=== PATIENT | male | born 1955 | race Caucasian/White ===

== ENCOUNTER 2018-06-28 09:40 | Day surgery (SDC) | payer BC ==
[~2018-06-28 09:40] MED LIST: ACETAMINOPHEN 1,000 MG/100 ML BTL IV ONE; CEFAZOLIN 2 Gram 2 GM/50 ML BAG IVPB ONE; CELECOXIB 100 MG CAPSULE PO ONE; FAMOTIDINE 20MG TABLET PO ONE; MECLIZINE 25 MG TABLET PO ONE; METOCLOPRAMIDE 10 MG TABLET PO ONE; VANCOMYCIN HCL 1,000 MG in DEXTROSE 5 % IN WATER 250 ML IVPB ONE
[2018-06-28] MEDS ORDERED: BUPIVACAINE 0.5% W/EPI MPF 30 ML VIAL IVP ONE (09:41)
[2018-06-28] MEDS ORDERED: LIDOCAINE 2% MDV (20MG/ML) 20ML VIAL IV ONE (09:41)
[2018-06-28] MEDS ORDERED: DEXAMETHASONE 4 MG/ML 1ML VIAL IVP ONE (09:41)
[2018-06-28] MEDS ORDERED: PROPOFOL 10 MG/ML VIAL IV ONE (09:41)
[2018-06-28] MEDS ORDERED: MIDAZOLAM HCL 2MG/2ML VIAL IV ONE (09:41)
[2018-06-28] MEDS ORDERED: HYDROCORTISONE 100MG/VIAL IVP ONE (09:41)
[2018-06-28] MEDS ORDERED: TRANEXAMIC ACID 1,000 MG/10 ML ML IV ONE (09:41)
[2018-06-28] MEDS ORDERED: METOCLOPRAMIDE 10 MG TABLET PO ONE (09:41)
[2018-06-28] MEDS ORDERED: ROPIVACAINE HCL (NAROPIN) /PF 5MG/ML 20ML VIAL IV ONE (09:41)
[2018-06-28 10:35] LABS: ABO GROUP AB; ANTIBODY SCREEN NEGATIVE (NEGATIVE); RH TYPE POSITIVE
[2018-06-28] MEDS ORDERED: AL HYDROX/MAG HYDROX 30ML UD PO PRN (14:28)
[2018-06-28] MEDS ORDERED: ONDANSETRON HCL IV 4 MG/2 ML VIAL IVP PRN (14:28)
[2018-06-28] MEDS ORDERED: MAGNESIUM HYDROXIDE 30 ML UDC PO PRN (14:28)
[2018-06-28] MEDS ORDERED: ACETAMINOPHEN 325 MG TAB PO PRN (14:28)
[2018-06-28] MEDS ORDERED: TRAMADOL HCL 50 MG TABLET PO PRN (14:28)
[2018-06-28] MEDS ORDERED: ZOLPIDEM TARTRATE 5 MG TABLET PO PRN (14:28)
[2018-06-28] MEDS ORDERED: HYDROCODONE/APAP 10/325 TABLET PO PRN (14:28)
[2018-06-28] MEDS ORDERED: DIPHENHYDRAMINE HCL 25 MG CAPSULE PO PRN ×2 (14:28→15:00)
[2018-06-28] MEDS ORDERED: KETOROLAC 30 MG/ML VIAL IVP PRN ×2 (14:28)
[2018-06-28] MEDS ORDERED: NALOXONE 0.4 MG/1 ML VIAL IVP PRN (14:28)
[2018-06-28] MEDS ORDERED: ACETAMINOPHEN W/ CODEINE 300MG/60MG TABLET PO PRN ×2 (14:28)
[2018-06-28] MEDS ORDERED: BISACODYL 10 MG SUPP RC PRN (14:28)
[2018-06-28] MEDS ORDERED: HYDROMORPHONE HCL 2 MG/ML VIAL IM PRN (14:28)
[2018-06-28] MEDS ORDERED: POTASSIUM CHLORIDE/D5-0.9%NACL 20 MEQ/1,000 ML BAG IV SCH (15:00)
[2018-06-28] MEDS ORDERED: MELATONIN 5 MG TABLET PO PRN (15:00)
--- NOTE | 2018-06-28 17:18 | Rehab Evaluation ---
Patient Information - Patient Information Diagnosis: R knee DJD Ordered Treatment: PT Evaluate and Treat Status: Initial Evaluation Surgery: Yes (R TKA) Date of Surgery: 06/28/18 Past Medical/Surgical Hx: PAST MEDICAL/SURGICAL HISTORY Past Surgical History KIDNEY TRANSPLANT 2009 RIGHT KNEE SX'S X'S 2 PYLORIC STENOSIS SKIN CA REMOVALS FISTULA FOR DIALYSIS C SCOPES PMH - Respiratory Hx Respiratory Disorders Yes Hx Bronchitis Yes: IN PAST PMH - Cardiovascular Hx Cardiovascular Disorders Yes Hx Hypertension Yes: ON MEDS GOOD CONTROL Hx Irregular Heartbeat Yes: MANY YEARS AGO PVC'S ? Exercise Tolerance Good PMH - Neuro Hx Neurological Disorders Yes Hx Headaches Yes: WITH BRAIN CONTUSION Comment: BRAIN CONTUSION 1 YEAR AGO PMH - GI Hx Gastrointestinal Disorders Yes Hx Gastroesophageal Reflux Yes Hx Hiatal Hernia Yes PMH - Hx Genitourinary Disorders Yes Hx Renal Disease Yes: POLYCYSTIC KIDNEY DISEASE HAD TRANSPLANT 2009 PMH - Endocrine Hx Endocrine Disorders No PMH - Musculoskeletal Hx Musculoskeletal Disorders Yes Hx Arthritis Yes: RIGHT KNEE, THUMB PMH - Psych Hx Psychiatric Problems No PMH - Hematology/Oncology Hx Hematology/Oncology Yes Disorders Hx Cancer Yes: SKIN Hx Chemotherapy No Hx Radiation Therapy No Premorbid Status: Detail (The patient was independent with all mobility prior to surgery.) Social History: Detail (The patient lives with spouse in a 2 story house with one step at the enterance with no railings. The patient will be staying on the main floor initially. The patient's home has two bathrooms. The patient states he will be using the one with the walk in shower and elevated toilet seat. The other bathroom has a tub/shower combination and standard toilet. No grab bars are present in the bathroom. The patient has a walker with wheels and a standard cane.) Precautions: [place], Fall, Other (WBAT on the R LE) - Time With Patient Total Time Spent With Patient (Min): 30 Treatment Procedures: Detail (Initial Evaluation) Subjective Information - Subjective Information Per Patient (The patient had no complaints of pain. The patient had some residual numbness in r groin region.) Objective Data - Mental Status Patient Orientation: Oriented x3 - Visual Perception Appears within normal limits for therapeutic activities - ROM Not within normal limits (The patient's R knee AROM is limited as to be expected s/p surgery. All other LE AROM is WNL.) - Strength/Tone Not within normal limits (The patient's R LE strength was not tested s/p surgery however was functional ie: pt. was able to lift R LE in and out of bed.) - Bed Mobility Independent (The patient was independent with supine to and from sit transfer and scooting up in bed.) - Transfers Independent (The patient was independent with sit to and from stand transfer.) - Balance Balance Sitting: Good Balance Standing: Good - Gait Detail (The patient ambulated with two wheeled walker, WBAT on the R LE a distance of 75 feet x 1 with supervision for safety only.) Therapy Assessment - Therapy Assessment Detail (The patient was independent with bed mobility and transfers and requires supervision for safety only with ambulation. Feel the patient will progress well with mobility. Due to stable condition and few personal factors PT evaluation complexity is rated as low.) Problem List - Problem List Physical Therapy Problem List: Detail (1) Decreased R knee AROM s/p surgery 2) Decreased R LE strength s/p surgery) Goals - Goals Physical Therapy Goals: 1) The patient will be independent with TKA HEP. 2) The patient will ambulate on stairs using proper technique with supervision for safety only. 3) The patient will be independent with ambulation community distances with appropriate assistive device. Prognosis - Prognosis Good Plan - Plan Physical Therapy Plan: PT 1-2 sessions for gait training on levels and stairs and instruction in HEP.
[2018-06-28] MEDS ORDERED: 0.9 % SODIUM CHLORIDE 1000ML 1,000 ML IV PRN (18:59)
[2018-06-28] MEDS ORDERED: PATIENT OWN MED: RANITIDINE 150 MG PO SCH (20:00)
[2018-06-28] MEDS ORDERED: PATIENT OWN MED: AMLODIPINE 10 MG PO SCH (20:00)
[2018-06-28] MEDS: CEFAZOLIN 2 Gram 2 GM/50 ML BAG IVPB SCH (20:16)
[2018-06-28] MEDS: DOCUSATE SODIUM 100 MG CAPSULE PO SCH ×2 (20:18→22:39)
[2018-06-28] MEDS: MYCOPHENOLATE 250 MG PO SCH (20:18)
[2018-06-28] MEDS: TACROLIMUS 5 MG PO SCH (20:18)
[2018-06-29] MEDS: HYDROCODONE/APAP 10/325 TABLET PO PRN ×2 (00:02→08:27)
[2018-06-29] MEDS: CEFAZOLIN 2 Gram 2 GM/50 ML BAG IVPB SCH ×2 (03:53→12:15)
[2018-06-29 07:13] LABS: HEMATOCRIT 41.7 % (42.0-52.0); HEMOGLOBIN 13.5 gm/dl (14.0-18.0)
[2018-06-29 07:25] LABS: BLOOD UREA NITROGEN 14 mg/dL (8-23); CREATININE 0.8 mg/dL (0.7-1.2); EST GLOMERULAR FILTRATION RATE > 60 mL/min; GLUCOSE,RANDOM 123 mg/dL (74-109)
[2018-06-29] MEDS ORDERED: PATIENT OWN MED: PREDNISONE 5 MG PO SCH (08:00)
[2018-06-29] MEDS ORDERED: LISINOPRIL 20 MG TABLET PO SCH (08:00)
--- NOTE | 2018-06-29 08:21 | Operative Note ---
DATE OF SURGERY: 06/28/2018 PREOPERATIVE DIAGNOSIS: End-stage arthrosis of the right knee. POSTOPERATIVE DIAGNOSIS: End-stage arthrosis of the right knee. OPERATION: Cemented right total knee arthroplasty using [employer] II components with a size 8 posterior stabilized Oxinium femur, a size 7 stem tibia baseplate, a 9 mm lipped highly crosslinked posterior stabilized tibial insert, and a 35 mm all plastic patella. Staff Surgeon: Dagoberto Brown MD Anesthesia: Spinal. PREPARATION: Chloraprep. INDIVIDUAL CONSIDERATIONS: None. PROCEDURE: The patient was taken to the operating room, placed supine on the operating room table. He had a successful induction of spinal anesthetic. The right lower extremity was prepped and draped in the usual fashion. The patient had a midline approach to the knee. Sharp dissection carried down through skin and subcutaneous tissue. Small veins were coagulated with a Bovie. A medial arthrotomy was performed. The patella was everted and the knee was flexed. The patient had profound arthrosis with osteophytes in the centimeter range. There was a large loose body which was debrided. Fat pad was resected. There was no ACL. Provisional anterior meniscectomies were performed. The capsule was released from the medial proximal tibia. The initial femoral forestry pilot hole was then made freehand. The intramedullary femoral cutting jig was placed. It was cut in 7.0 degrees of valgus and adjusted for rotation and secured with pins for a 10 mm resection. The initial transverse cut was then made. The skin guide was placed in the anterior and posterior forestry pilot holes. It was found that with an 8 mm implant, there was excellent sizing and stability. The anterior and posterior cuts followed by chamfer cuts were made. Huge osteophytes removed, and a size 8 trial was placed and found to fit well. The tibia was brought forward, and the remainder of the meniscal remnants removed with a Bovie. The extraarticular tibial cutting jig was placed. It was cut in neutral with a 3-degree AP slope. The patient had what appeared to be a very atrophic PCL but I tried to save it. It was set for a 9 mm resection keyed off the high lateral side and secured with pins. When cutting the tibia, I was able to get the large osteophytes off and was able to finally bring the tibia forward enough to finish the cut. After removing huge osteophytes, I was able to fit a size 7. It was adjusted for rotation and secured with pins. With a 9 mm trial and femoral trial, there was excellent motion and stability. There was really no PCL, so I had to put the reaming guide back on the femur, ream the notch and then use a box cutting osteotome for the cutout for the posterior stabilized femur. I trialed this and it fit well. The tourniquet was let down briefly to get bleeders posteriorly and then placed back up again. The patient had a huge patella and roughly 9 mm of bone was removed freehand. The osteophytes again were in the centimeter range. After trimming osteophytes and drilling the 3 forestry pilot holes, I could easily fit a 35 patella. After thorough irrigation to remove any visual or palpable debris, bony surfaces were then dried. A size 7 stem tibia baseplate was cemented into place followed by cementing in the size 8 Oxinium posterior stabilized femoral component followed by impacting the 9 mm highly crosslinked lipped posterior stabilized tibial insert, followed by cementing in the 35 mm patella. The implant surfaces were compressed, excess cement was removed, and after the cement had set, there was excellent motion and stability, ligamentous balance, rotation alignment, and patellofemoral tracking were normal. No lateral release was required. Again thorough irrigation. Tourniquet was let down. Hemostasis was obtained with a Bovie. The skin, subcu, and periosteum were infiltrated with 30 mL of 0.5% Marcaine with epinephrine. The capsule was then closed with a running #2 quill, subcu was closed in layers with running 0 quill, skin was closed with kassy. Then 20 mL of saline mixed with 1 g of tranexamic acid was injected into the knee, and a sterile bulky compressive KRIS-type dressing was applied. The patient tolerated the procedure well. Needle and sponge counts were correct. Estimated blood loss was minimal, and he was taken back to recovery in good condition. There were no complications. TOY
[2018-06-29] MEDS: TACROLIMUS 5 MG PO SCH (08:23)
[2018-06-29] MEDS ORDERED: MYCOPHENOLATE 250 MG PO SCH (09:15)
[2018-06-29] MEDS ORDERED: FERROUS SULFATE 325 MG TAB PO SCH (10:00)
[2018-06-29] MEDS ORDERED: RIVAROXABAN 10 MG TABLET PO SCH (10:00)
--- NOTE | 2018-06-29 10:44 | Physical Therapy Tx Note ---
Physical Therapy Tx Note - Treatment Note Tolerated: Good Total Time Spent With Patient: 25 Physical Therapy Tx Note: Detail (The patient was up in chair when PT arrived. The patient ambulated with two wheeled walker WBAT on the R LE a distance of 250 feet x 1 independently. The patient ambulated on 3 steps with use of railing and folded walker using proper technique independently. The patient completed R TKA exercises including SLR, quad sets, gluteal sets, hamstring sets , ankle pumps, seated and supine heel slides. The patient had complaints primarily of posterior knee pain in hamstring insertion region. The patient has met all inpatient PT goals and is discharged from inpatient PT.) Physical Therapy Problem List: Detail (1) Decreased R knee AROM s/p surgery 2) Decreased R LE strength s/p surgery) Physical Therapy Goals: 1) The patient will be independent with TKA HEP. (Goal Met). 2) The patient will ambulate on stairs using proper technique with supervision for safety only.(Goal Met). 3) The patient will be independent with ambulation community distances with appropriate assistive device. (Goal Met ) Physical Therapy Plan: The patient is discharged from inpatient PT and is to receive Home PT services.
--- NOTE | 2018-06-29 10:46 | Rehab Evaluation ---
Patient Information - Patient Information Diagnosis: R knee DJD Ordered Treatment: OT Evaluate and Treat Status: Initial Evaluation Surgery: Yes (R TKA) Date of Surgery: 06/28/18 Past Medical/Surgical Hx: PAST MEDICAL/SURGICAL HISTORY Past Surgical History KIDNEY TRANSPLANT 2009 RIGHT KNEE SX'S X'S 2 PYLORIC STENOSIS SKIN CA REMOVALS FISTULA FOR DIALYSIS C SCOPES PMH - Respiratory Hx Respiratory Disorders Yes Hx Bronchitis Yes: IN PAST PMH - Cardiovascular Hx Cardiovascular Disorders Yes Hx Hypertension Yes: ON MEDS GOOD CONTROL Hx Irregular Heartbeat Yes: MANY YEARS AGO PVC'S ? Exercise Tolerance Good PMH - Neuro Hx Neurological Disorders Yes Hx Headaches Yes: WITH BRAIN CONTUSION Comment: BRAIN CONTUSION 1 YEAR AGO PMH - GI Hx Gastrointestinal Disorders Yes Hx Gastroesophageal Reflux Yes Hx Hiatal Hernia Yes PMH - Hx Genitourinary Disorders Yes Hx Renal Disease Yes: POLYCYSTIC KIDNEY DISEASE HAD TRANSPLANT 2009 PMH - Endocrine Hx Endocrine Disorders No PMH - Musculoskeletal Hx Musculoskeletal Disorders Yes Hx Arthritis Yes: RIGHT KNEE, THUMB PMH - Psych Hx Psychiatric Problems No PMH - Hematology/Oncology Hx Hematology/Oncology Yes Disorders Hx Cancer Yes: SKIN Hx Chemotherapy No Hx Radiation Therapy No Premorbid Status: Detail (The patient was independent with all mobility, meal prep, home mgmt, laundry and yard work activities prior to surgery.) Social History: Detail (The patient lives with spouse in a 2 story house with one step at the entrance with no railings. The patient will be staying on the main floor initially. The patient's home has two bathrooms. The patient states he will be using the one with the walk in shower and elevated toilet seat. The other bathroom has a tub/shower combination and standard toilet. No grab bars are present in the bathroom. The patient has a walker with wheels and a standard cane.) Precautions: [place], Fall, Other (WBAT on the R LE) - Time With Patient Total Time Spent With Patient (Min): 35 Treatment Procedures: Detail (OT eval low complexity) Subjective Information - Subjective Information Per Patient Objective Data - Pain Pain Present: No - Mental Status Patient Orientation: Oriented x3 - Visual Perception Appears within normal limits for therapeutic activities - ROM Within normal limits (Walter UE AROM WNL) - Strength/Tone Within normal limits (Walter UE strength WNL) - Coordination Appears within normal limits for therapeutic activities - Bed Mobility Independent (Ind with supine to sit) - Transfers Independent (Ind with sit to stand from EOB, toilet and chair heights.) - Balance Balance Sitting: Good Balance Standing: Good - Sensation Intact - Gait Detail (Pt ambulating in room with 2 wheeled walker Indly.) - ADL's/IADL's Detail (Pt educated and able to demonstrate learning of modified LE dressing techniques including doffing briefs and slipper socks and donning boxer shorts, pants and tennis shoes. Reviewed kitchen and shower safety and modifications, pt verbalizes learning.) Therapy Assessment - Therapy Assessment Detail (Pt is Ind with modified LE dressing techniques.) Problem List - Problem List Physical Therapy Problem List: Detail (1) Decreased R knee AROM s/p surgery 2) Decreased R LE strength s/p surgery) Occupational Therapy Problem List: Detail (No current IP OT problems identified. ) Goals - Goals Physical Therapy Goals: 1) The patient will be independent with TKA HEP. 2) The patient will ambulate on stairs using proper technique with supervision for safety only. 3) The patient will be independent with ambulation community distances with appropriate assistive device. Occupational Therapy Goals: No current IP OT goals identified. Prognosis - Prognosis Good Plan - Plan Physical Therapy Plan: PT 1-2 sessions for gait training on levels and stairs and instruction in HEP. Occupational Therapy Plan: No further IP OT recommended at this time. Thank you for this referral.
[2018-06-29] MEDS: DOCUSATE SODIUM 100 MG CAPSULE PO SCH (12:12)
[2018-06-29] MEDS: MYCOPHENOLATE 250 MG PO SCH (12:24)
== END 2018-06-29 13:55 | disposition home or self-care (01) ==
LOC: SUR 09:40 → MEDSURG 14:52 → SUR 06-29 13:55
PROVIDERS: ATTEND Orthopaedic Surgery
DX: M17.11 Unilateral primary osteoarthritis, right knee (principal); I10 Essential (primary) hypertension; K21.9 Gastro-esophageal reflux disease without esophagitis; N18.6 End stage renal disease; Z94.0 Kidney transplant status
CPT/HCPCS: 27447; 01402; 64447; 85018; 85014; 80048; 86900; 86901; 86850; J3370; J0690 ×2; J3490 ×2; J2795; 97110; 97530; J1720; J3480; J7060